=== PATIENT | female | born 1975 | race African-American/Black ===

== ENCOUNTER 2017-09-29 05:45 | Emergency (ER) | payer OTHER ==
[~2017-09-29] VITALS: Ht 157.5 cm; Wt 95.3 kg
[~2017-09-29 05:45] MED LIST: ACETAMINOPHEN-1 EAC1 PO; DEPO-PROVE150 MG/11; HYDROCODONE-AP1 EAC6 PO; LEVOTHYROXIN0.025 MG PO; ONDANSETRON HCL4 M2 PO; PERCOCET 7.5-31 EACH PO; PERCOCET PO; PHENERGAN 25 MG25 M1 PO; PROMS25 WY RECTAL; ZOFRAN ODT4 MG PO; ZOFRAN4 MG PO
[2017-09-29 06:28] LABS: ABSOLUTE BASOPHILS 0.1 thou/uL (0.0-0.2); ABSOLUTE EOSINOPHILS 0.1 thou/uL (0.0-0.7); ABSOLUTE LYMPHOCYTES 2.2 thou/uL (0.8-5.3); ABSOLUTE MONOCYTES 0.6 thou/uL (0.0-1.2); ABSOLUTE NEUTROPHILS 7.5 thou/uL (1.6-8.1); BASOPHILS 0.9 %; EOSINOPHILS 1.4 %; HEMATOCRIT 39.4 % (37.0-47.0); HEMOGLOBIN 13.2 gm/dL (12.0-15.0); LYMPHOCYTES 20.6 %; MCH 29.6 pg (26.0-34.0); MCHC 33.6 g/dL (28.0-37.0); MCV 88.1 fL (80.0-100.0); MONOCYTES 5.7 %; MPV 8.8 fl. (7.2-11.1); NUCLEATED RBCS 0 /100WBC; PLATELET COUNT* 272 thou/uL (150-400); POLYS 71.4 %; RBC 4.47 mil/uL (4.20-5.00); RDW-CV 13.9 % (10.5-14.5); WBC 10.5 thou/uL (4.0-11.0)
[2017-09-29 06:32] LABS: CALCIUM 8.5 mg/dL (8.5-10.1); CREATININE 1.3 mg/dL (0.6-1.3); POTASSIUM 3.6 mmol/L (3.5-5.1)
[2017-09-29 06:36] LABS: ALBUMIN 3.5 g/dL (3.4-5.0); TOTAL BILIRUBIN 0.3 mg/dL (<0.1-1.0); TOTAL PROTEIN 7.9 g/dL (6.4-8.2)
[2017-09-29] MEDS ORDERED: PHENERGAN 25 MG25 M1 PO (08:16)
[2017-09-29] MEDS ORDERED: HYDROCODON-ACE1 EAC7 PO (08:16)
[2017-09-29] MEDS ORDERED: FLAGYL500 MG PO (08:16)
[2017-09-29] MEDS ORDERED: CIPROFLOXACIN500 M1 PO (08:16)
[2017-09-29] MEDS ORDERED: PERCOCET 5-3251 EACH PO (09:32)
[2017-09-29 09:36] VITALS: BP 134/90
[2017-09-29 09:45] LABS: URINE BILIRUBIN NEGATIVE (Negative); URINE BLOOD 1+ (Negative); URINE CLARITY CLEAR; URINE COLOR YELLOW; URINE GLUCOSE-RANDOM NEGATIVE (Negative); URINE KETONES NEGATIVE (Negative); URINE LEUKOCYTES-REFLEX NEGATIVE (Negative); URINE NITRITE-REFLEX NEGATIVE (Negative); URINE PROTEIN NEGATIVE (Negative); URINE SPECIFIC GRAVITY <= 1.005 (1.005-1.030); URINE UROBILINOGEN 0.2 E.U./dl (0.2-1.0)
[2017-09-29 10:02] LABS: SQUAMOUS 0-3 Few /LPF (0-3); URINE WBC-REFLEX 0-5 Rare /HPF (0-5)
[2017-09-29 10:03] LABS: BACTERIA-REFLEX 1-9 Few /HPF (None Seen); CASTS None Seen /LPF (None Seen); CRYSTALS None Seen /LPF (None Seen); MUCUS 0-3 Light strn/LPF (None Seen); URINE RBC 0-2 Rare /HPF (0-2)
== END 2017-09-29 09:37 | disposition home or self-care (01) ==
LOC: M.ERS 05:45
PROVIDERS: Emergency Medicine
DX: K57.92 Diverticulitis of intestine, part unspecified, without perforation or abscess without bleeding (principal); R11.2 Nausea with vomiting, unspecified; E03.9 Hypothyroidism, unspecified; F17.210 Nicotine dependence, cigarettes, uncomplicated; Z90.711 Acquired absence of uterus with remaining cervical stump